=== PATIENT | female | born 1955 | race African-American/Black ===

== ENCOUNTER → 2020-01-02 | Outpatient (CLI) | payer OTHER, MEDICARE | LOC: MHCPAIN 14:53 | DX: M54.12 Radiculopathy, cervical region (principal) | CPT/HCPCS: G0463 ==

== ENCOUNTER 2022-11-20 07:40 | Day surgery (SDC) | payer MEDICARE ==
[~2022-11-20] VITALS: Ht 160 cm; Wt 82.9 kg
[2022-11-20] MEDS ORDERED: [UNRECOGNIZED DRUG - OTHER] PO (08:18)
[2022-11-20] MEDS ORDERED: CALCIUM 600 MG1 EAC2 PO ×2 (08:18→08:19)
[2022-11-20] MEDS ORDERED: ALDACTONE50 MG PO (08:19)
[2022-11-20] MEDS ORDERED: TYLENOL 500MG500 MG PO (08:20)
[2022-11-20] MEDS ORDERED: LIPITOR20 MG PO (08:20)
[2022-11-20 08:40] VITALS: BP 134/83; PULSE 118; TEMP 98.3
[2022-11-20 09:30] VITALS: BP 126/88; PULSE 101
[2022-11-20 09:45] VITALS: BP 110/83; PULSE 102
[2022-11-20 10:00] VITALS: BP 112/63; PULSE 96
[2022-11-20 10:08] VITALS: BP 106/81; PULSE 101
--- NOTE | 2022-11-20 10:25 | NUR ---
0930 RECEIVED POST PROCEDURE REPORT FROM JOE ZHANG. PT IS ALERT AND ANSWERING QUESTIONS APPROPRIATELY, FOLLOWING COMMANDS, ABLE TO TRANSFER FROM CART TO RECLINER W/OUT DIFFICULTY. 0938 PT GIVEN JUICE AND MUFFIN 1000 IV DISCONTINUED AND REMOVED, DISCHARGE INSTRUCTIONS REVIEWED. QUESTIONS INVITED AND ANSWERED. PT TO LOBBY VIA WHEEL CHAIR FOR RIDE HOME W/ FRIEND VIA POV
== END 2022-11-20 10:25 | disposition home or self-care (01) ==
LOC: SDCO 07:40
DX: K57.32 Diverticulitis of large intestine without perforation or abscess without bleeding (principal); K56.699 Other intestinal obstruction unspecified as to partial versus complete obstruction
CPT/HCPCS: J2704; J7120